=== PATIENT | male | born 1955 | race Caucasian/White ===

== ENCOUNTER 2023-06-25 18:27 | Inpatient (IN) | payer MEDICARE, OTHER ==
[~2023-06-25] VITALS: Ht 172.7 cm; Wt 70.2 kg
[2023-06-25 20:22] LABS: BASOPHILS ABSOLUTE AUTO 0.07 K/mm3 (0.00-0.23); BASOPHILS PERCENT AUTO 1 % (0-2); EOSINOPHILS ABSOLUTE AUTO 0.15 K/mm3 (0.00-0.68); EOSINOPHILS PERCENT AUTO 2 % (0-6); Hematocrit 42.3 % (37.0-53.0); Hemoglobin 14.5 g/dL (13.5-17.5); IMMATURE GRAN ABSOLUTE AUTO 0.01 K/mm3 (0.00-0.10); IMMATURE GRAN PERCENT AUTO 0 % (0-1); LYMPHOCYTES ABSOLUTE AUTO 2.46 K/mm3 (0.84-5.20); LYMPHOCYTES PERCENT AUTO 31 % (21-46); MONOCYTES ABSOLUTE AUTO 0.73 K/mm3 (0.16-1.47); MONOCYTES PERCENT AUTO 9 % (4-13); Mean Corpuscular HGB 30.9 pg (26.0-34.0); Mean Corpuscular HGB Conc 34.3 g/dL (31.5-36.5); Mean Corpuscular Volume 90 fL (80-100); Mean Platelet Volume 9.2 fL (9.1-12.4); NEUTROPHILS ABSOLUTE AUTO 4.63 K/mm3 (1.96-9.15); NEUTROPHILS PERCENT AUTO 57 % (41-73); Platelet Count 363 K/mm3 (150-400); RDW Coefficient Variation 14.3 % (11.7-14.2); RDW Standard Deviation 47.4 fL (35.1-46.3); Red Blood Cell Count 4.69 M/mm3 (4.30-5.90); White Blood Cell Count 8.05 K/mm3 (4.00-11.30)
[2023-06-25 20:23] LABS: Albumin, Blood 3.8 g/dL (3.4-5.0); Albumin/Globulin Ratio 1.1 (0.8-1.8); Bilirubin, Total 0.3 mg/dL (0.1-1.0); Calcium, Blood 9.3 mg/dL (8.5-10.1); Creatinine, Blood 0.84 mg/dL (0.60-1.20); Globulin, Blood 3.6 g/dL (2.2-4.0); Potassium, Blood 3.9 mmol/L (3.5-5.5); Total Protein, Blood 7.4 g/dL (6.4-8.2)
[2023-06-25 20:24] LABS: Anti-Xa UFH, PHA Monitoring <0.10 IU/mL; International Normalized Ratio 0.93; Prothrombin Time Results 9.8 Sec (9.7-11.5)
--- NOTE | 2023-06-25 21:15 | NUR ---
SPOKE WITH DR. DOBBS REGARDING PT STATUS AND ADMISSION TO PCU. PT APPEARS STABLE AND TROPONIN HAS PEAKED. PLAN TO MOVE TO MEDICAL STATUS PER MD
[2023-06-25 22:17] VITALS: BP 157/102
[2023-06-25 23:50] VITALS: BP 127/78
--- NOTE | 2023-06-25 23:53 | NUR ---
PT ADMIT FROM ED WITH CP, UUPON ADMIT TO FLOOR PT HAD C/O OF CP RADIATING THROUGH BOTH ARMS WITH C/O OF NUMBNESS. HOSPITALIST NOTIFIED AND EKG PERFORMED AND PT WAS SINUS TACH. ORDER FOR NITRO PASTE 2 INCHES X 1 APPLIED TO LUCW. PT REPORTED CP WAS RELIEVED.
--- NOTE | 2023-06-25 23:56 | NUR ---
NOTIFIED BY HOSPICE TEAM LEAD PT HAD 2.5 SECOND RUN OF SVT IN 170'S. PT ASYMPTOMATIC NO C/O OF CP/PALPITATIONS. HOSPITALIST NOTIFIED AND ORDER GIVEN TO CHANGE PT STATUS TO PCU FOR TRANSFER TO HIGHER LEVEL OF CARE.
[2023-06-26] VITALS (17 sets, daily range): BP systolic 99–151; BP diastolic 43–91
--- NOTE | 2023-06-26 02:40 | NUR ---
PT TRANSFERRED IN HOUSE TO PCU WITH ALL BELONGINGS AND HEPARIN DRIP INFUSING.
[2023-06-26 03:34] LABS: Hematocrit 39.5 % (37.0-53.0); Hemoglobin 13.4 g/dL (13.5-17.5); Mean Corpuscular HGB 30.8 pg (26.0-34.0); Mean Corpuscular HGB Conc 33.9 g/dL (31.5-36.5); Mean Corpuscular Volume 91 fL (80-100); Mean Platelet Volume 8.7 fL (9.1-12.4); Platelet Count 314 K/mm3 (150-400); RDW Standard Deviation 47.6 fL (35.1-46.3); Red Blood Cell Count 4.35 M/mm3 (4.30-5.90); White Blood Cell Count 8.02 K/mm3 (4.00-11.30)
[2023-06-26 03:57] LABS: Calcium, Blood 8.5 mg/dL (8.5-10.1); Creatinine, Blood 0.75 mg/dL (0.60-1.20); Potassium, Blood 4.1 mmol/L (3.5-5.5)
--- NOTE | 2023-06-26 05:38 | NUR ---
TRANSFER OF CARE NOTE/SHIFT SUMMARY RECEIVED REPORT FROM MED FLOOR RN VICKIE CALHOUN ~0223 THIS AM, PT SHORTLY ARRIVED TO PCU ~0240. A/Ox4 AND COOPERATIVE WITH CARE. ANSWERS QUESTIONS APPROPRIATELY AND ABLE TO MAKE HIS NEEDS KNOWN. NO ACUTE EVENTS SINCE ARRIVING TO PCU. CARDIAC, REMAINS IN SR-ST 80-100'S WITH NO C/O CP OR PRESSURE WHILE IN PCU. SBP HAS BEEN STABLE RANGING 100-120'S. RESPIRATORY, MAINTAINS SPO2 >95% ON RA WITH NO C/O SOB OR DYSPNEA. GI/, ABD SOFT/NON-TENDER. DENIES ANY SORT OF N/V. ABLE TO INDEPENDETLY AMBULATE TO BATHROOM TO VOID. HEPARIN gtt BEING MANAGED BY PHARMACY AND HAS BEEN INFUSING PER EMAR. PT HAS BEEN NPO SINCE MDN ORDERED. CARDIOLOGY CONSULT CALLED TO ANSWERING SERVICE ORDERED. ASSESSED PT FOR RISKS OF ANY IGNITION SOURCES WELL BEHAVIORS FOR INCREASED RISKS OF FIRE DANGER. PT EDUCATED ON COMMON SOURCES OF IGNITION WELL NEED TO KEEP A SAFE ENVIRONMENT. PT VOICED UNDERSTANDING. NO NEW ORDERS AT THIS TIME, WILL REPORT TO ONCOMING RN. SOFIA SAUCEDO OF THIS NOTE.
[2023-06-26 11:24] LABS: Cholesterol 180 mg/dL (50-200); Triglycerides 185 mg/dL (30-160); Very Low Density Lipoprot Chol 37 mg/dL (6-32)
[2023-06-26 11:25] LABS: HDL Cholesterol 45 mg/dL (>39); LDL/HDL RATIO 2.2; Low Density Lipoprotein Chol 98 mg/dL (0-110)
--- NOTE | 2023-06-26 17:27 | NUR ---
UPDATE PT BACK FROM [facility] APPROX 1300. STARTED DEFLATING TR BAND APPROX 1545. AT 1645, 1 ML REMOVED FROM TR BAND AND SITE STARTED BLEEDING. 1 ML REINSTATED, PRESSURE HELD X10 MIN. NO LONGER BLEEDING. NO BRUISING, NO SIGNS OF HEMATOMA. INSTRUCTED PT WILL WAIT 1 HR BEFORE ATTEMPTING TO LET MORE AIR OUT OF TR BAND.
--- NOTE | 2023-06-26 17:35 | NUR ---
SHIFT SUMMARY PT A&OX4, VSS. BP SOFT. PLEASANT. UP IN ROOM INDEPENDENTLY. HEP GTT AND NS INFUSED PER EMAR PRIOR TO CATH. ECHO IN ROOM THIS SHIFT, SEE RESULTS. PT NPO FOR CATH THIS SHIFT, SEE PREVIOUS NOTE. PT IN ROOM, RESTING IN BED. TR BAND IN PLACE, ARM BOARD IN PLACE. ABLE TO EAT DINNER INDEPENDENTLY. IN ROOM. CALL LIGHT IN REACH.
--- NOTE | 2023-06-26 23:30 | NUR ---
R RADIAL TR BAND RECOVERY 1935: 1mL OF AIR REMOVED FROM TR BAND. NO BLEEDING, BRUISING, OR HEMATOMA PRESENT. PT DENIES PAIN/TENDERNESS. SpO2 ON R INDEX FINGER SHOWS >92% RA. ARM BOARD IN PLACE. 1950: 1mL OF AIR REMOVED FROM TR BAND. NO BLEEDING, BRUISING, OR HEMATOMA PRESENT. PT DENIES PAIN/TENDERNESS. SpO2 ON R INDEX FINGER SHOWS >92% RA. ARM BOARD IN PLACE. 2009: 1mL OF AIR REMOVED FROM TR BAND. NO BLEEDING, BRUISING, OR HEMATOMA PRESENT. PT DENIES PAIN/TENDERNESS. SpO2 ON R INDEX FINGER SHOWS >92% RA. ARM BOARD IN PLACE. 2039: 1mL OF AIR REMOVED FROM TR BAND. NO BLEEDING, BRUISING, OR HEMATOMA PRESENT. PT DENIES PAIN/TENDERNESS. SpO2 ON R INDEX FINGER SHOWS >92% RA. ARM BOARD IN PLACE. 2104: 1mL OF AIR REMOVED FROM TR BAND. NO BLEEDING, BRUISING, OR HEMATOMA PRESENT. PT DENIES PAIN/TENDERNESS. SpO2 ON R INDEX FINGER SHOWS >92% RA. ARM BOARD IN PLACE. 2134: 1mL OF AIR REMOVED FROM TR BAND. NO BLEEDING, BRUISING, OR HEMATOMA PRESENT. PT DENIES PAIN/TENDERNESS. SpO2 ON R INDEX FINGER SHOWS >92% RA. ARM BOARD IN PLACE. 2149: 1mL OF AIR REMOVED FROM TR BAND, TR BAND NOW EMPTY. NO BLEEDING, BRUISING, OR HEMATOMA PRESENT. PT DENIES PAIN/TENDERNESS. SpO2 ON R INDEX FINGER SHOWS >92% RA. ARM BOARD IN PLACE. 2249: TR BAND REMOVED. SITE CLEANED WITH CHLORHEXIDINE, SKIN PREP APPLIED, TEGADERM PLACED, AND ARM BOARD IN PLACE. NO BLEEDING, BRUISING, OR HEMATOMA PRESENT. PT DENIES PAIN/TENDERNESS. SpO2 ON R INDEX FINGER SHOWS >92% RA.
[2023-06-27] VITALS: BP 141/79
[2023-06-27 01:00] VITALS: BP 112/58
[2023-06-27 02:00] VITALS: BP 126/73
[2023-06-27 04:48] LABS: Hematocrit 42.2 % (37.0-53.0); Hemoglobin 14.1 g/dL (13.5-17.5); Mean Corpuscular HGB 30.7 pg (26.0-34.0); Mean Corpuscular HGB Conc 33.4 g/dL (31.5-36.5); Mean Corpuscular Volume 92 fL (80-100); Mean Platelet Volume 8.8 fL (9.1-12.4); Platelet Count 302 K/mm3 (150-400); RDW Standard Deviation 47.5 fL (35.1-46.3); White Blood Cell Count 7.05 K/mm3 (4.00-11.30)
[2023-06-27 05:03] LABS: Albumin, Blood 3.3 g/dL (3.4-5.0); Anion Gap 6 mmol/L (6-16); Blood Urea Nitrogen 16 mg/dL (8-24); Bun/Creatinine Ratio 18.2 (12.0-20.0); CO2, Blood 24 mmol/L (21-32); Calcium, Blood 8.6 mg/dL (8.5-10.1); Chloride, Blood 108 mmol/L (98-108); Creatinine, Blood 0.88 mg/dL (0.60-1.20); Glomerular Filtration Rate 95 (60-); Glucose, Blood 135 mg/dL (70-99); Magnesium, Blood 2.1 mg/dL (1.6-2.4); Phosphorus, Blood 3.3 mg/dL (2.5-4.9); Potassium, Blood 4.2 mmol/L (3.5-5.5); Sodium, Blood 138 mmol/L (136-145)
--- NOTE | 2023-06-27 05:10 | NUR ---
SHIFT SUMMARY SEE PREVIOUS NOTE. PT A&Ox4, CALLS AND COMMUNICATES NEEDS APPROPRIATELY. IND IN ROOM, CONTINENT OF URINE, FORGETS TO USE URINAL FOR I&Os, NO BM THIS SHIFT. BP STABLE, SINUS 70's. PT WITH 2 EPISODES OF CP THAT LASTED APPROXIMATELY 3-5 MINUTES, PHYSICIAN NOTIFIED, ORDERS PLACED. CP SUBSIDED BEFORE NEEDING NITRO TABS. SpO2> 92% RA, DENIES SOB. R RADIAL SITE REMAINS WNL. NO OTHER EVENTS, WILL REPORT TO ONCOMING RN.
[2023-06-27 08:07] VITALS: BP 158/97
[2023-06-27 08:11] LABS: HEMOGLOBIN A1C 6.2 % (4.8-5.6)
[2023-06-27 11:24] VITALS: BP 133/76
[2023-06-27] MEDS ORDERED: ASPI81CH PO ×2 (11:39)
[2023-06-27] MEDS ORDERED: ATOR80 PO ×2 (11:39)
[2023-06-27] MEDS ORDERED: CLOP75 PO ×2 (11:40)
[2023-06-27] MEDS ORDERED: Isosorbide Mono30 MG PO ×2 (11:40)
[2023-06-27] MEDS ORDERED: TOPROL XL25 MG PO ×2 (11:41)
[2023-06-27] MEDS ORDERED: NITR.4SL SL ×2 (11:42)
--- NOTE | 2023-06-27 13:06 | NUR ---
DISCHARGE SUMMARY PT A&OX4, VSS. EDUCATED OF NEW MEDICATIONS REVIEWED. PT VERBALIZED UNDERSTANDING. MEDICATIONS FAXED TO [facility]. EDUCATED PT ABOUT POST ANGIO/R RADIAL SITE CARE. PAPER COPIES GIVEN OF EDUCATION. IV REMOVED. PT LEFT W/ GIRLFRIEND TO CATARACT APPT AT 1300.
== END 2023-06-27 12:53 | disposition home or self-care (01) | DRG 282 ==
LOC: ER 18:27 → PCU 20:44 → MEDS 22:06 → PCU 06-26 02:34
PROVIDERS: Emergency Medicine; Internal Medicine; Nurse Practitioner Acute Care; Student in an Organized Health Care Education/Training Program; ADMIT Internal Medicine
PROC: B2111ZZ Fluoroscopy of Multiple Coronary Arteries using Low Osmolar Contrast (ICD-10-PCS; principal; 2023-06-26)
PROC: 4A023N7 Measurement of Cardiac Sampling and Pressure, Left Heart, Percutaneous Approach (ICD-10-PCS; 2023-06-26)
DX: I21.4 Non-ST elevation (NSTEMI) myocardial infarction (principal); I10 Essential (primary) hypertension; E78.5 Hyperlipidemia, unspecified; I25.5 Ischemic cardiomyopathy; Z71.6 Tobacco abuse counseling; F17.210 Nicotine dependence, cigarettes, uncomplicated; I45.10 Unspecified right bundle-branch block; I25.10 Atherosclerotic heart disease of native coronary artery without angina pectoris
CPT/HCPCS: 36415; 71046; 76937; 80048; 80053; 80061; 80069; 83036; 83735; 83880; 84443; 84484; 85025; 85027; 85520; 85610; 85730; 93005; 93010; 93306; 93458; 96365; 96366; 99152; 99153; 99284-25; A9270; C1769; C1894; J1644; J2250; J3010; J7030; J7050; Q9967

== ENCOUNTER → 2023-06-25 | Outpatient (CLI) | payer MEDICARE, OTHER ==
[~2023-06-25] MED LIST: ASPI81CH PO; ATOR80 PO; CLOP75 PO; Isosorbide Mono30 MG PO; NITR.4SL SL; TOPROL XL25 MG PO
[2023-06-25 17:56] LABS: Bun/Creatinine Ratio 11.5 (12.0-20.0); Calcium, Blood 9.5 mg/dL (8.5-10.1); Creatinine, Blood 0.96 mg/dL (0.60-1.20); Potassium, Blood 4.4 mmol/L (3.5-5.5)
== END | disposition home or self-care (01) ==
LOC: LAB 17:45 → LAB SHORT 17:45
PROVIDERS: Family Medicine
DX: R07.9 Chest pain, unspecified (principal)
CPT/HCPCS: 80048; 84484; 85379

== ENCOUNTER 2024-01-21 08:18 | Day surgery (SDC) | payer MEDICARE, OTHER ==
[~2024-01-21] VITALS: Ht 172.7 cm; Wt 79.7 kg
[~2024-01-21 08:18] MED LIST changes: +Balanced Salt Epinephrine Irrigation Solution 500 mL IR SCH; +LOSA25; +Lidocaine HCl/Pf 1% 5 ML VIAL XX SCH; +Moxifloxacin HCL 0.5 MG/0.1 ML 0.4MLSYR LEFTEYE SCH; +NS 500 ML IV ONE; +PANT20; +PHENYLEPHRINE\\TROPICAMIDE\\TETRACAINE OPHTHALMIC DILATING SOLN LEFTEYE PRN; +Povidone-Iodine 450 DROP/30 ML Solution LEFTEYE SCH; +Povidone-Iodine 450 DROP/30 ML Solution ONE
[2024-01-21] MEDS ORDERED: NS 500 ML IV ONE ×2 (08:45)
--- NOTE | 2024-01-21 08:45 | NUR ---
01/21/24 0845 Kristen Eugene CALL LIGHT WITHIN REACH. TETRACAINE IN LEFT EYE AT 0843 AND MAURISIO GURROLAT 0846
[2024-01-21] MEDS ORDERED: FentaNYL Citrate 50 MCG/ML 2 ML Injection ONE (09:06)
[2024-01-21] MEDS ORDERED: Midazolam HCl 1MG / ML 2ML Vial ONE (09:07)
[2024-01-21] MEDS ORDERED: Tetracaine HCl 0.5% Opth Soln 15 ml LEFTEYE ONE (09:28)
[2024-01-21 10:06] VITALS: BP 126/76
--- NOTE | 2024-01-21 14:47 | NUR ---
01/21/24 1447 Vee Serrato SURGICAL SITE PREPPED BY CRISTIAN HENRY - [employer]
== END 2024-01-21 10:01 | disposition home or self-care (01) ==
LOC: ORSCSDS 08:18
PROVIDERS: Student in an Organized Health Care Education/Training Program
PROC: 08RK3JZ Replacement of Left Lens with Synthetic Substitute, Percutaneous Approach (ICD-10-PCS; principal; 2024-01-21 09:30)
DX: H25.12 Age-related nuclear cataract, left eye (principal); I10 Essential (primary) hypertension; H21.81 Floppy iris syndrome; H30.892 Other chorioretinal inflammations, left eye; I25.2 Old myocardial infarction; I25.10 Atherosclerotic heart disease of native coronary artery without angina pectoris; K21.9 Gastro-esophageal reflux disease without esophagitis; F17.210 Nicotine dependence, cigarettes, uncomplicated; Z79.82 Long term (current) use of aspirin; Z79.899 Other long term (current) drug therapy
CPT/HCPCS: J2250; J3010; J7040; V2632